=== PATIENT | female | born 1980 | race Caucasian/White ===

== ENCOUNTER 2019-05-06 00:17 | Emergency (ER) | payer OTHER ==
[~2019-05-06] VITALS: Ht 154.9 cm; Wt 104.3 kg
[2019-05-06 00:49] LABS: URINE BILIRUBIN NEGATIVE (Negative); URINE BLOOD NEGATIVE (Negative); URINE CLARITY CLEAR; URINE COLOR YELLOW; URINE GLUCOSE-RANDOM NEGATIVE (Negative); URINE KETONES 1+ (Negative); URINE LEUKOCYTES-REFLEX NEGATIVE (Negative); URINE NITRITE-REFLEX NEGATIVE (Negative); URINE PROTEIN NEGATIVE (Negative); URINE UROBILINOGEN 0.2 E.U./dl (0.2-1.0)
[2019-05-06 01:09] LABS: ABSOLUTE LYMPHOCYTES 1.8 thou/uL (0.8-5.3); ABSOLUTE MONOCYTES 0.4 thou/uL (0.0-1.2); ABSOLUTE NEUTROPHILS 11.8 thou/uL (1.6-8.1); BASOPHILS 0.3 %; EOSINOPHILS 0.2 %; HEMATOCRIT 42.2 % (37.0-47.0); HEMOGLOBIN 14.2 gm/dL (12.0-15.0); LYMPHOCYTES 12.5 %; MCH 30.4 pg (26.0-34.0); MCHC 33.8 g/dL (28.0-37.0); MCV 89.9 fL (80.0-100.0); MPV 8.4 fl. (7.2-11.1); NUCLEATED RBCS 0 /100WBC; PLATELET COUNT* 286 thou/uL (150-400); RBC 4.69 mil/uL (4.20-5.00); RDW-CV 13.2 % (10.5-14.5)
[2019-05-06 01:20] LABS: ANION GAP 9 mmol/L (7-16); BUN 13 mg/dL (7-18); CALCIUM 9.2 mg/dL (8.5-10.1); CHLORIDE 101 mmol/L (98-107); CO2 27 mmol/L (21-32); CREATININE 0.9 mg/dL (0.6-1.3); GLUCOSE 144 mg/dL (70-99); POTASSIUM 3.9 mmol/L (3.5-5.1); SODIUM 137 mmol/L (136-145)
[2019-05-06 01:29] LABS: ALBUMIN 3.8 g/dL (3.4-5.0); ALKALINE PHOSPHATASE 122 U/L (46-116); LIPASE 106 U/L (73-393); SGOT 14 U/L (15-37); SGPT 22 U/L (30-65); TOTAL BILIRUBIN 0.2 mg/dL (<0.1-1.0); TOTAL PROTEIN 8.2 g/dL (6.4-8.2); TROPONIN-I LEVEL <0.06 ng/mL (<0.06)
[2019-05-06] MEDS ORDERED: ZOFRAN ODT4 MG DISSOLVE (02:34)
[2019-05-06] MEDS ORDERED: CARAFATE 1 GM TA1 G1 PO (02:34)
[2019-05-06] MEDS ORDERED: NORCO 5-325 TA1 EAC1 PO (02:34)
[2019-05-06 03:31] VITALS: BP 126/83
--- NOTE | 2019-05-06 11:36 | EKG ---
[place] [address] ELECTROCARDIOGRAM REPORT Name: MONACOMAKENNAROSA BULLOCK Room: [facility]#: [id number] Admission: 05/06/19 Attend Phys: Discharge: 05/06/19 Date of : 84 Report #: [id number] THIS REPORT FOR: //name// [facility] ED Test Date: 2019-05-06 Test Time: 01:11:18 Pat Name: MAKENNA MONACO Department: Room: Gender: F Supervisor Assembling: : 1980 Requested By: Shai Sarabia Order Number: [id number] MD: aTng Aguirre Measurements Intervals [place]raine Rate: 86 P: -23 MA: 122 QRS: 15 QRSD: 102 T: 20 QT: 408 QTc: 488 Interpretive Statements Sinus rhythm Low voltage, precordial leads Borderline prolonged QT interval No previous ECG available for comparison Electronically Signed On 05-06-2019 11:35:47 CDT by Tang Aguirre [email or web address] <ELECTRONICALLY SIGNED> By: Tang Aguirre MD, [facility] 05/06/19 1135 0111 0 Tang Aguirre MD, FACC /EPI
== END 2019-05-06 03:32 | disposition home or self-care (01) ==
LOC: M.ERS 00:17
PROVIDERS: Emergency Medicine Emergency Medical Services
DX: R10.11 Right upper quadrant pain (principal); R10.13 Epigastric pain; R10.12 Left upper quadrant pain; Z90.49 Acquired absence of other specified parts of digestive tract

== ENCOUNTER 2020-01-25 07:16 | Emergency (ER) | payer OTHER ==
[~2020-01-25] VITALS: Ht 154.9 cm; Wt 104.3 kg
[~2020-01-25 07:16] MED LIST: CARAFATE 1 GM TA1 G1 PO; NORCO 5-325 TA1 EAC1 PO; ZOFRAN ODT4 MG DISSOLVE
[2020-01-25] MEDS ORDERED: HYDROCODON-ACE1 EAC7 PO (10:25)
[2020-01-25 10:51] VITALS: BP 101/66
[2020-01-30] MEDS ORDERED: ASPIRIN325 PO (15:09)
== END 2020-01-25 10:53 | disposition home or self-care (01) ==
LOC: M.ERS 07:16
DX: S82.841A Displaced bimalleolar fracture of right lower leg, initial encounter for closed fracture (principal); Z90.49 Acquired absence of other specified parts of digestive tract; W10.8XXA Fall (on) (from) other stairs and steps, initial encounter; Y93.89 Activity, other specified; Y92.89 Other specified places as the place of occurrence of the external cause; Y99.8 Other external cause status

== ENCOUNTER → 2020-01-30 | Day surgery (SDC) | payer OTHER ==
[~2020-01-30] MED LIST changes: +ASPIRIN325 PO; +HYDROCODON-ACE1 EAC7 PO
--- NOTE | ~2020-01-30 | OP ---
[facility] [address] [place] [address] OPERATIVE REPORT Name: MAKENNA MONACO Room: [facility]#: [id number] Admission: 01/30/20 Attend Phys: Roberto Mccollum DO Discharge: Date of : 84 Report #: [id number] THIS REPORT FOR: //name// cc: TONY Lancaster family physician/PCP TONY Lancaster family physician/PCP ~ THIS REPORT FOR: //name// CC: TONY physician/PCP Roberto Mccollum DATE OF SERVICE: 01/30/2020 PREOPERATIVE DIAGNOSIS: Right bimalleolar equivalent ankle fracture with syndesmotic instability. POSTOPERATIVE DIAGNOSIS: Right bimalleolar equivalent ankle fracture with syndesmotic instability. PROCEDURE: 1. Open reduction and internal fixation, right bimalleolar equivalent ankle fracture (fixation of distal fibula). 2. Open reduction and internal fixation, right syndesmosis. SURGEON: Roberto Mccollum DO OFFICE MACHINE EMBOSSOGRAPH OPERATOR: Héctor Masters DO ANESTHESIA: General. ANTIBIOTICS: Ancef. INTRAVENOUS FLUIDS: 1000 mL lactated Ringer's. ESTIMATED BLOOD LOSS: 20 mL. COMPLICATIONS: None. SPECIMENS: None. DRAINS: None. TOURNIQUET TIME: 32 minutes at 250 mmHg. CONDITION OF PATIENT: Stable to PACU. IMPLANTS: [place] distal fibular locking plate with 3.[address] [place] [address] OPERATIVE REPORT Name: MAKENNA MONACO Room: [facility]#: [id number] Admission: 01/30/20 Attend Phys: Roberto Mccollum DO Discharge: Date of : 84 Report #: [id number] proximally, locking screws distally, one 3.5 tricortical syndesmotic screw. INDICATIONS FOR PROCEDURE: The patient presented to [facility] for operative treatment of her right ankle fracture. I saw her today in clinic. She was originally seen by my partner who asked that I take over care due to my fracture training. We agreed that operative fixation would be the recommendation of choice. I went over with them the plan of surgery with reasoning, indications, risks, and complications not only in clinic today, but also in the preoperative area. Please see clinic note for full details. DESCRIPTION OF PROCEDURE: I marked the right lower extremity in the presence of the operative team members. Everyone agreed this was correct. It should be noted that her skin was wrinkling and in good condition for surgery. She was taken back to the operative suite and transferred over to the operating table in supine position, well-padded and secured. General anesthetic administered. A well-padded tourniquet was placed proximally on the right lower extremity, which was then sterilely prepped and draped in standard fashion. Timeout was performed indicating correct patient, procedure, site, antibiotics and that implants were present and sterile. All team members agreed. Marked out our incision laterally the fibula standard. Esmarched extremity and insufflated the tourniquet to 250 mmHg. Scalpel through skin, careful soft tissue dissection to finding and visualizing the superficial peroneal nerve and protecting it throughout the entirety of the case. Visualized our fracture site, it was very comminuted distal fibular fracture with even some bone loss, but we were able to find some of that bone loss attached to some soft tissue, and able to use it as a bone graft to fill the defect, cleaned out our fracture site, reduced it, pinned it in position. Multiplanar C-arm imaging confirmed that we had reestablish length, alignment and rotation, still had syndesmotic widening and this was expected. Placed our plate, drilled, measured and placed 3.5 cortical screws proximally and unicortical 3.5 mm locking screws distally, removed our provisional fixation. We now had stable fibula that was restored the length, alignment and rotation. We openly reduced the syndesmosis, so that we had direct visualization. Under C-arm guidance, we drilled for a 3.5 tricortical screw. We placed the first screw, it was a little too anterior and we could visualize the little malreduction going to anterior. We therefore re-reduced the fibula in its appropriate position and drilled a little more posteriorly in line, measured and placed that screw. This gave good compression to the syndesmosis and we had a direct visualization of its reduction and the x-rays were better images as well. Final C-arm images showed excellent reduction and jainism of joint line, stable mortise and placement of hardware. Saved images and dismissed C-arm. Let down tourniquet, total time 32 minutes. Maintained hemostasis, thoroughly irrigated with normal saline, 0 Vicryl for closure over the plate, 2-0 Monocryl subcutaneous and 3-0 nylon simple interrupted for skin. Debriefing performed confirming procedure, blood loss and that all counts were correct and final. All team members agreed. Sterile dressings were applied of Xeroform gauze, 4 x 4s, soft roll, very well-padded [address] [address] OPERATIVE REPORT Name: MAKENNA MONACO Room: [facility]#: [id number] Admission: 01/30/20 Attend Phys: Roberto Mccollum, DO Discharge: Date of : 84 Report #: [id number] posterior splint with the ankle in neutral position. She was extubated and taken to PACU in stable. POSTOPERATIVE COURSE AND EVALUATION: I spoke with her per her wishes. Addressed questions he had to stated satisfaction. They were thankful for my time and efforts. She was resting in PACU with stable vital signs, pain controlled, neurovascularly intact. She had no pain out of proportion with passive stretching, we were able to work through our splint and she had a negative Homans sign with compartments soft and compressible. We have talked about getting PACU films explained to her that this is my standard way of doing things; however, she wanted to minimize her bill as much as possible; therefore, we will not obtain these images and will do it in my clinic in followup. Final images were excellent as described above. She will be nonweightbearing. Maintain the splint clean, dry and intact. DVT prophylaxis should be both mechanical and this was described to them on how to do this as well as prophylactic. She will take an aspirin 325 mg daily as directed. We also educated them on concerning signs or symptoms of the robotic complications and when to present even to the Emergency Department or call 911 emergently and they verbalized understanding. She will take pain medications as directed. Follow up in 2 weeks, sooner if need be. They know they can call or come in at any time. By: [id number] Mccollum DO /nt
[2020-01-30 11:29] LABS: HEMATOCRIT 38.4 % (37.0-47.0)
== END | disposition home or self-care (01) ==
LOC: M.SUR 07:08
PROVIDERS: Orthopaedic Surgery
DX: S82.61XA Displaced fracture of lateral malleolus of right fibula, initial encounter for closed fracture (principal); S82.831A Other fracture of upper and lower end of right fibula, initial encounter for closed fracture; S93.431A Sprain of tibiofibular ligament of right ankle, initial encounter; X58.XXXA Exposure to other specified factors, initial encounter; Y93.89 Activity, other specified; Y92.89 Other specified places as the place of occurrence of the external cause; Y99.8 Other external cause status